=== PATIENT | female | born 1950 ===

== ENCOUNTER 2024-04-01 13:14 | Emergency (ER) | payer SELFPAY ==
[2024-04-01 13:26] VITALS: BP 144/78
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
== END 2024-04-01 15:00 | disposition home or self-care (01) ==
LOC: EMR 13:14
PROVIDERS: EMERGENCY PHYSICIAN Student in an Organized Health Care Education/Training Program; FAMILY PHYSICIAN Internal Medicine
DX: S50.812A Abrasion of left forearm, initial encounter (principal); K13.79 Other lesions of oral mucosa; R41.0 Disorientation, unspecified; V89.2XXA Person injured in unspecified motor-vehicle accident, traffic, initial encounter
CPT/HCPCS: 99282